=== PATIENT | female | born 2000 | race African-American/Black ===

== ENCOUNTER 2024-05-06 11:55 | Emergency (ER) | payer OTHER ==
[~2024-05-06] VITALS: Ht 177.8 cm; Wt 100.0 kg
[2024-05-06 11:58] VITALS: O2SAT 98
[2024-05-06 12:33] LABS: BASOPHILS % 0.6 % (0.0-2.0); EOSINOPHILS % 0.4 % (0.0-5.0); HEMATOCRIT. 42.4 % (36.0-48.0); HEMOGLOBIN. 14.1 g/dL (12.0-16.0); MEAN CORPUSCULAR HEMOGLOBIN 29.3 pg (28.0-32.0); MEAN CORPUSCULAR HGB CONC 33.3 g/dL (31.0-37.0); MEAN CORPUSCULAR VOLUME 88.1 fL (81.0-99.0); MEAN PLATELET VOLUME 9.9 fl (7.4-10.4); MONOCYTES % 5.3 % (2.0-8.0); NEUTROPHILS % 84.7 % (40.0-76.0); PLATELET 250 x1000/uL (130-400); RED BLOOD CELL COUNT 4.81 mill/uL (4.2-5.4); RED CELL DISTRIBUTION WIDTH 14.3 % (11.6-14.6)
[2024-05-06 12:39] LABS: CHLORIDE 107 mEq/L (98-107); SODIUM 138 mEq/L (136-145)
[2024-05-06 12:40] LABS: CARBON DIOXIDE 19 mEq/L (21-32)
[2024-05-06 12:41] LABS: CALCIUM 9.9 mg/dL (8.7-10.4)
[2024-05-06 12:44] LABS: HCG SCREEN NEGATIVE
[2024-05-06 12:45] LABS: CREATININE 0.8 mg/dL (0.6-1.0); GLUCOSE 141 mg/dL (70-105)
[2024-05-06 12:46] LABS: PROTHROMBIN TIME 11.5 sec (9.6-11.0); UREA NITROGEN BLOOD 7 mg/dL (9-23)
[2024-05-06 12:49] LABS: POTASSIUM 2.8 mEq/L (3.5-5.1)
[2024-05-06] MEDS: PANTOPRAZOLE SODIUM 40 MG/VIAL IV ONE (13:01)
[2024-05-06] MEDS: DIPHENHYDRAMINE 50MG/ML VIAL IV ONE (13:01)
[2024-05-06] MEDS: LACTATED RINGERS 1,000 ML IV ONE (13:02)
[2024-05-06] MEDS: PROCHLORPERAZINE 10MG/2ML VIAL IV ONE (13:14)
[2024-05-06] MEDS: POTASSIUM CHLORIDE 20MEQ TABLET SR PO NR (13:30)
[2024-05-06] MEDS: KCL 20MEQ/100ML PREMIX 100 ML IV SCH (13:45)
[2024-05-06 14:37] LABS: ALANINE AMINOTRANSFERASE 13 IU/L (10-49); ALBUMIN 4.7 g/dL (3.2-4.8); ASPARTATE AMINOTRANSFERASE 17 IU/L (<34); BILIRUBIN DIRECT 0.2 mg/dL (<=3.0); BILIRUBIN TOTAL 0.7 mg/dL (0.1-1.0); PROTEIN TOTAL 7.3 g/dL (6.0-8.3)
[2024-05-06] MEDS ORDERED: ONDA-239 PO (16:26)
[2024-05-06 17:11] VITALS: BP 127/68; PULSE 75; RESP 15; TEMP 36.83628; O2SAT 98
== END 2024-05-06 17:16 | disposition home or self-care (01) ==
LOC: ER 11:55
DX: R10.13 Epigastric pain (principal); E86.0 Dehydration; E87.6 Hypokalemia
CPT/HCPCS: 99285; 74176; 96365; 96375; 80076; 80048; 84703; 83690; 85025; 85610; 36415; J1200; J2470; J3480; J0780; J7120